=== PATIENT | male | born 1950 | race Caucasian/White ===

== ENCOUNTER 2018-01-03 16:33 | Emergency (ER) | payer OTHER ==
[~2018-01-03] VITALS: Ht 180.3 cm; Wt 86.4 kg
[~2018-01-03 16:33] MED LIST: NO HOME MEDICATIONS; PRILOSEC 10MG10 MG PO
[2018-01-03] MEDS ORDERED: MULTIPLE VITAMI1 CAP PO (17:11)
[2018-01-03 17:21] LABS: BASO % 0.7 % (0.0-2.0); EOS # 0.1 (0.0-0.7); EOS % 1.1 % (0-4.0); GRAN # 3.8 (1.4-6.5); GRAN % 67.8 % (42.2-75.2); HEMATOCRIT 38.7 % (42.0-52.0); HEMOGLOBIN 13.3 g/dl (13.5-18.0); LYMPH # 1.2 (1.2-3.4); LYMPH % 21.3 % (20.0-51.0); MEAN CELL VOLUME 92 fl (80.0-100.0); MEAN CORPUSCULAR HEMOGLOBIN 32 pg (27.0-31.0); MEAN CORPUSCULAR HGB CONC 34 g/dl (33.0-37.0); MONO # 0.5 (0.1-0.6); MONO % 8.9 % (1.7-9.3); PLATELET COUNT 194 K/mm3 (130-400); RED BLOOD COUNT 4.21 M/mm3 (4.20-5.60); REDCELL DISTRIBUTION WIDTH-CV 12.3 % (11.5-14.5)
[2018-01-03 17:22] LABS: PROTHROMBIN TIME 11.7 SECONDS (9.7-12.8)
[2018-01-03 17:25] LABS: PARTIAL THROMBOPLASTIN TIME 30.9 SECONDS (26.0-37.0)
[2018-01-03 17:30] LABS: ALANINE AMINOTRANSFERASE 36 U/L (21-72); ALBUMIN 4.2 gm/dL (3.5-5.0); ALKALINE PHOSPHATASE 71 U/L (50-136); ANION GAP 14 mmol/L (7-16); AST,SGOT 26 U/L (15-37); BILIRUBIN,TOTAL 0.6 mg/dL (0.0-1.0); BLOOD UREA NITROGEN 14 mg/dL (9-20); CALCIUM 8.9 mg/dL (8.4-10.2); CARBON DIOXIDE 25 mmol/L (22-30); CHLORIDE 106 mmol/L (98-107); CREATININE, serum 1.08 mg/dL (0.66-1.25); GLUCOSE 92 mg/dL (74-106); POTASSIUM 3.5 mmol/L (3.4-5.0); SODIUM 145 mmol/L (137-145)
[2018-01-03 17:37] LABS: ALCOHOL(ethanol),MEDICAL < 10 mg/dL
[2018-01-03 17:46] LABS: TROPONIN-I < 0.012 ng/mL (0.000-0.034)
[2018-01-03 18:13] VITALS: BP 145/93; PULSE 75; TEMP 97.5
== END 2018-01-03 18:13 | disposition home or self-care (01) ==
LOC: COL.ER 16:33
PROVIDERS: Family Medicine
DX: R07.89 Other chest pain (principal); R41.82 Altered mental status, unspecified

== ENCOUNTER 2019-07-21 10:46 | Day surgery (SDC) | payer MEDICARE, BC ==
[~2019-07-21] VITALS: Ht 180.3 cm; Wt 83.5 kg
[2019-07-21] VITALS (10 sets, daily range): BP systolic 132–167; BP diastolic 81–93; PULSE 77–124; TEMP 97.5–98.4
[~2019-07-21 10:46] MED LIST changes: +MULTIPLE VITAMI1 CAP PO
[2019-07-21] MEDS ORDERED: LEVAQUIN 5500 MG/TA1 PO (11:50)
[2019-07-21] MEDS ORDERED: PRINIVIL10 MG PO (11:51)
--- NOTE | 2019-07-21 12:11 | NUR ---
Patient escorted to restroom, voids, returns to room.
--- NOTE | 2019-07-21 15:45 | NUR ---
Patient arrived to floor via bed. He continues to have burning in his bladder and penis. He stated nothing he has been given is helping and does not want try anything else for pain at this time. Denies nausea. Mansi is here explaining the procedure for mitomycin installation. Patient is alert and oriented. He has a friend with him at bedside. Vital signs are stable. No other changes at this time. Call light within reach.
--- NOTE | 2019-07-21 17:06 | NUR ---
Pt has now been to each side and back x2. He is asking for medication to remove his discomfort from the catheter but he has already recieved that. His friend is playing the guitar to help soothe him and we will continue to try to support him with this dwell time until he reports he is ready to release.
--- NOTE | 2019-07-21 17:29 | NUR ---
Pt is now concerned that he will have to keep his catheter in for several days per what Dr Ashley reportedly told his friend. Pt is slow in processing what is said to him at times but does seems to understand what is said to him. He is now on his right side.
--- NOTE | 2019-07-21 18:29 | NUR ---
Pt was able to tolerate the dwell time for the two hours ordered. 300ml of bloody urine drained from bladder along with mitomycin. Catheter bag changed. Pt able to stand up at bedside and is acting more alert and aware. Pericare was done and scant bloody drainage was noted near end of penis. He is preparing to eat his evening meal. Report to Chen REEDER.
--- NOTE | 2019-07-21 18:35 | NUR ---
CBI used to flush bladder and then reduced to slow rate.
--- NOTE | 2019-07-21 20:00 | NUR ---
Patient in bed, is alert and oriented x4. IV site to right hand with IVF infusing without problem. Catheter cares provided. Has CBI infusing at moderate rate, urine dark red, no clots noted. Patient has read chemo precautions papers, questions answered as best possible.
--- NOTE | 2019-07-22 03:20 | NUR ---
Patient disoriented, has IV site pulled out and is sitting at edge of bed. Mendenhall catheter and CBI remain intact. Patient reports having a dream then thinking he needed to get up. DC'd IVF as patient is drinking well. Restarted SL to right forearm without problem. Hand irrigated catheter, no clots returned. Urine is pink tinged at this time with CBI running at slow rate. Chemo precautions being observed.
[2019-07-22 03:33] VITALS: BP 135/87; PULSE 85; TEMP 98.5
--- NOTE | 2019-07-22 04:30 | NUR ---
Patient impulsive, standing beside bed with catheter pulled tight. Redirected back to bed. Patient insistent of his catheter leaking, was hand irrigated with no clots returned, flushes easily. Urine is pink tinged at this time. Attempted to explain mustafa catheter function, patient believes he needs to forcefully make himself urinate. No leaking around catheter at this time.
--- NOTE | 2019-07-22 06:00 | NUR ---
REMAINS IMPULSIVE AND HARD TO REDIRECT BACK TO BED. STILL INSISTS HE NEEDS TO MAKE HIMSELF URINATE. BED ALARM ON.
--- NOTE | 2019-07-22 06:17 | NUR ---
LEVSIN PO GIVEN AT THIS TIME FOR POSSIBLE BLADDER SPASMS.
--- NOTE | 2019-07-22 07:20 | NUR ---
REPORT TO LEI REEDER.
[2019-07-22 08:25] VITALS: BP 127/74; PULSE 81; TEMP 98.2
--- NOTE | 2019-07-22 09:22 | NUR ---
Patient resting in bed. High fall risk followed. Patient's mind seems to be clearing, he is not nearly as impulsive as he was at the begining of the shift. He is aware his mind was not clear. He is anxious/nervous about having to go home with mustafa, he is anxiously awaiting to round. He did well with breakfast. Int. Will monitor.
[2019-07-22 12:00] VITALS: BP 135/73; PULSE 85; TEMP 98.5
--- NOTE | 2019-07-22 13:55 | NUR ---
rounded. Orders obtained. Patient discharging home with mustafa in place. Patient not interested in leg bag teaching. Mustafa care taught. Patient aware to follow up with urology on & to call with any questions or concnerns. his friend at bedside taking him home. Script for pyridium called to [facility], home med list reviewed. Patient wheeled out with all belongings.
== END 2019-07-22 14:02 | disposition home or self-care (01) ==
LOC: SDCO 10:46 → SURG 15:25 → SDCO 15:30 → SURG 07-22 14:02
DX: C67.5 Malignant neoplasm of bladder neck (principal); C67.2 Malignant neoplasm of lateral wall of bladder; I10 Essential (primary) hypertension; F32.9 Major depressive disorder, single episode, unspecified; M19.90 Unspecified osteoarthritis, unspecified site; F03.90 Unspecified dementia, unspecified severity, without behavioral disturbance, psychotic disturbance, mood disturbance, and anxiety; F41.9 Anxiety disorder, unspecified; E78.5 Hyperlipidemia, unspecified; Z87.891 Personal history of nicotine dependence; Z83.3 Family history of diabetes mellitus
CPT/HCPCS: OP; J0690; J2405; J2704; J3010; J3480; J7120; J9280; Q9967

== ENCOUNTER 2019-08-15 13:29 | Inpatient (IN) | payer MEDICARE, BC ==
[~2019-08-15] VITALS: Ht 180.3 cm; Wt 72.7 kg
[~2019-08-15 13:29] MED LIST changes: +LEVAQUIN 5500 MG/TA1 PO; +PRINIVIL10 MG PO
[2019-08-15 14:29] LABS: BASO % 0.8 % (0.0-2.0); EOS % 0.8 % (0-4.0); GRAN # 2.8 (1.4-6.5); GRAN % 78.1 % (42.2-75.2); HEMATOCRIT 39.6 % (42.0-52.0); HEMOGLOBIN 13.4 g/dl (13.5-18.0); LYMPH # 0.4 (1.2-3.4); LYMPH % 11.7 % (20.0-51.0); MEAN CELL VOLUME 95 fl (80.0-100.0); MEAN CORPUSCULAR HEMOGLOBIN 32 pg (27.0-31.0); MEAN CORPUSCULAR HGB CONC 34 g/dl (33.0-37.0); MEAN PLATELET VOLUME 9.3 fl (7.4-10.4); MONO # 0.3 (0.1-0.6); MONO % 7.5 % (1.7-9.3); PLATELET COUNT 135 K/mm3 (130-400); RED BLOOD COUNT 4.17 M/mm3 (4.20-5.60); REDCELL DISTRIBUTION WIDTH-CV 12.4 % (11.5-14.5)
[2019-08-15 14:36] LABS: PROTHROMBIN TIME 11.1 SECONDS (9.7-12.8)
[2019-08-15 14:58] LABS: ALANINE AMINOTRANSFERASE 12 U/L (21-72); ALBUMIN 4.2 gm/dL (3.5-5.0); ALKALINE PHOSPHATASE 69 U/L (50-136); ANION GAP 12 mmol/L (7-16); AST,SGOT 27 U/L (15-37); BILIRUBIN,TOTAL 0.6 mg/dL (0.0-1.0); BLOOD UREA NITROGEN 11 mg/dL (9-20); CALCIUM 8.6 mg/dL (8.4-10.2); CARBON DIOXIDE 22 mmol/L (22-30); CHLORIDE 103 mmol/L (98-107); GLUCOSE 126 mg/dL (74-106); POTASSIUM 4.5 mmol/L (3.4-5.0); SODIUM 137 mmol/L (137-145); TOTAL PROTEIN 7.3 gm/dL (6.4-8.2)
[2019-08-15 15:02] LABS: ACETAMINOPHEN < 10 ug/mL (10-30); ALCOHOL(ethanol),MEDICAL < 10 mg/dL; SALICYLATE < 1.0 mg/dL
[2019-08-15 15:10] LABS: TROPONIN-I < 0.012 ng/mL (0.000-0.035)
[2019-08-15 15:12] LABS: TRICYCLIC ANTIDEPRESS URINE NEGATIVE
[2019-08-15] MEDS ORDERED: FLOMAX 0.40.4 MG/CAP PO (16:01)
[2019-08-15 18:30] VITALS: BP 167/102; PULSE 86; TEMP 98.5
--- NOTE | 2019-08-15 18:47 | NUR ---
182: PT ARRIVED TO FLOOR FROM ER WITH AMS/SEIZURES. PT TRANSFERED TO BED. ICU MONITORS APPLIED. PT IS AWAKE BUT UNABLE TO ANSWER MOST QUESTIONS. PT GOES OFF ON TANGENTS. PT ABLE TO FOLLOW COMMANDS. LENS MOUNTER EQUAL, NO FACIAL DROOP, LUIS. CALLED SINTIA TRISTAN REGARDING ADMISSION. SHE STATES WILL BE INPUTTING ADMIT ORDERS. 1834: CALL PLACED TO AND WAS NOTIFIED THAT HE WAS ON HIS WAY TO THE HOSPITAL. 1847: BEDSIDE TO EVALUATE PT.
--- NOTE | 2019-08-15 19:35 | NUR ---
PT'S FRIEND VIRGEN SETHI CALLED PT'S CELL PHONE. BRIEFLY UPDATED ON PT. ASKED HIM TO CONTACT PT'S SON GONSALO. GONSALO PATRICK CALLED THIS RN AND WAS UPDATED ON PT'S STATUS AND PLAN. STATES PT HAS NO HISTORY OF SEIZURES. PT'S SON LIVES IN [place] AND HIS NUMBER IS [phone]. PT ALSO HAS A DAUGHTER STAN PATRICK BUT SON STATES THEY ARE ESTRANGED. DAUGHTER LIVES IN [place] AND HER NUMBER IS [phone]. SON STATES PT'S FRIEND VIRGEN SETHI WILL COME TOMORROW AND BRING MEDICATIONS FROM PTS HOUSE. SON UPDATED ON PLAN AND THAT WE WILL CALL WITH UPDATES OR NEED FOR CONSENT. ENDORSED ABOVE TO NIGHT RN.
[2019-08-15 20:00] VITALS: BP 145/96; PULSE 76; TEMP 100.4
--- NOTE | 2019-08-15 20:10 | NUR ---
While assessing the patient, the patient's son, Rishi, called to follow up on information on his father. Rishi stated he was in contact with a friend of the patient's who lived in town that had more information on Jasen's (the patient) medical history. Stated that his urologist is Dr. Ashley, takes a new blood pressure medication as of 2 weeks ago, and takes Finastride for his prostate. Reported that the patient uses [facility] and that Nas (family friend) would be by in the afternoon tomorrow with the medications from Jasen's home. Rishi stated that Jasen may have a med list in his wallet, asked this RN if it may be in there. With the son on the phone, I looked through the patient's wallet and found no medication list but found alarm codes written throughout the wallet and informed the son that there may be an alarm code to the house if he were to be going over there to retreive medications. I then passed the phone to the patient to talk to his son, the conversation on the patient end was moderately confused, repetitive, and went on tangents. Seeing that the conversation was stressing the patient, I got the phone back and talked to the son. Rishi stated that he could tell his father was confused and didn't want to stress him, asked to call him back with any new changes.
[2019-08-16] VITALS (8 sets, daily range): BP systolic 120–153; BP diastolic 73–96; PULSE 67–90; TEMP 97.8–99
[2019-08-16] MEDS ORDERED: FINASTERIDE (06:04)
[2019-08-16 06:17] LABS: BASO % 0.7 % (0.0-2.0); EOS # 0.1 (0.0-0.7); EOS % 1.5 % (0-4.0); GRAN # 3.2 (1.4-6.5); GRAN % 69.9 % (42.2-75.2); LYMPH # 0.8 (1.2-3.4); LYMPH % 18.1 % (20.0-51.0); MEAN CELL VOLUME 95 fl (80.0-100.0); MEAN CORPUSCULAR HEMOGLOBIN 32 pg (27.0-31.0); MEAN CORPUSCULAR HGB CONC 34 g/dl (33.0-37.0); MEAN PLATELET VOLUME 9.5 fl (7.4-10.4); MONO # 0.4 (0.1-0.6); MONO % 9.6 % (1.7-9.3); PLATELET COUNT 144 K/mm3 (130-400); RED BLOOD COUNT 3.76 M/mm3 (4.20-5.60); REDCELL DISTRIBUTION WIDTH-CV 12.5 % (11.5-14.5)
[2019-08-16 06:20] LABS: CALCIUM 8.4 mg/dL (8.4-10.2); CREATININE, serum 1.04 (0.66-1.25); POTASSIUM 3.8 mmol/L (3.4-5.0)
[2019-08-16 06:21] LABS: HEMATOCRIT 35.8 % (42.0-52.0)
--- NOTE | 2019-08-16 07:00 | NUR ---
Bedside report given to VARINDER Rios.
--- NOTE | 2019-08-16 07:10 | NUR ---
Bedside shift report received from VARINDER Weiss. Patient is awake, alert, but is confused and speech is repetative. Patient reoriented to place, sitation, and time. Patient recalls having a seizure yesterday, but is "fuzzy" on the details. Patient cannot recall his home medications and when he last took them. Full assessment completed. Vital signs are stable. Seizure precautions are in place. Bed in lowest position. Call light within reach.
--- NOTE | 2019-08-16 07:15 | NUR ---
PT's friend Nas called to check in on patient, stated he would come by today to see him. Nas informed this RN that the patient has had "a pretty bad drinking problem the past two years" and wanted us to be aware in case this contributed as to why he is here. Nas said he could go to the PT's house to get his meds but [place] and he wanted to avoid a long trip, was hoping we would be able to retrieve a med list via the PT's last visit with Dr. Ashley or through [facility]. Nas said that he is likely going to be the most reliable "resource and advocate" for the patient since the PT does not have a good relationship with his children. Blanca RN (oncoming nurse) notified of this information.
--- NOTE | 2019-08-16 10:45 | NUR ---
Patient continuously attempting to get out of bed at this time. Patient is easily reoriented and is pleasant at this time. Patient states he is looking for his glasses. Personal belongings assessed and no glasses were found at this time. Patient states he will call his friend Nas to see if he left them in his car.
[2019-08-16 12:33] LABS: COLLECTION METHOD CATHETER
[2019-08-16 12:47] LABS: MUCOUS Present /lpf; PH 5 (5-8); SQUAMOUS EPITHELIAL None Seen /hpf; URINE APPEARANCE Cloudy; URINE BACTERIA None Seen /hpf; URINE BILIRUBIN Negative (NEGATIVE); URINE BLOOD 3+ (NEGATIVE); URINE COLOR Yellow; URINE GLUCOSE Negative (NEGATIVE); URINE KETONE Trace (NEGATIVE); URINE LEUKOCYTE ESTERASE Trace (NEGATIVE); URINE NITRATE Negative (NEGATIVE); URINE PROTEIN(semi-quant) 1+ (NEGATIVE); URINE RBC >50 /hpf; URINE UROBILINOGEN Negative (NEGATIVE)
--- NOTE | 2019-08-16 13:29 | NUR ---
Arborist Climber attended clinical rounds with the team and then met with patient to discuss discharge plan. Patient [place] [facility] [place]. Patient sees Dr. Zuñiga for primary care and obtains medications from [facility] with no difficulties. Patient does not use any DME and reports independence with ADLS. During rounds, Hospitalist discussed alcohol use. Patient reports he drinks once or twice a week and has less than a six pack normally. Patient states he drinks beer and occasionally has mixed drinks. Patient reports he has two living children. Patient reports his son, Robert lives in [place] and his daughter Rupal lives in [place]. Patient was unsure of their contact information. When asked about Advance Directives, patient was unsure if they had ever been set up. SW met again with patient and patient's friend, Nas (ph#[phone]) at bedside. Patient and Nas discussed patient's current living situation as patient states he can't do as much yard work as he used to. Patient would like to move to a condo of some kind that includes outdoor maintenance. SW asked patient again if he had Advance Directives. Patient states he thinks he has worked with an permanent mold supervisor and states he will follow up on this. Patient not interested in setting up DPOA-HC at the hospital. Nas provided SW with contact information for patient's son, Robert (ph#[phone]). Nas states he lives in [place] and knows more about the patient than patient's children do. Patient plans to return home upon discharge.
--- NOTE | 2019-08-16 15:15 | NUR ---
Report called to VARINDER Live at this time.
--- NOTE | 2019-08-16 15:46 | NUR ---
Patient transferred to medical bed 355 via wheelchair by APPLICATION ASSISTANT with no complications. Once patient in room, patient ambulates with no issues or concerns. Seizure precautions in place on new bed. Call light placed within reach of the patient. Patient oriented to room and bathroom. Patient has no complaints or concerns at this time. Medical floor techs and Maria T RN notified of patient arrival at this time.
--- NOTE | 2019-08-16 15:57 | NUR ---
Raw Stock Dyeing Machine Tender met with patient's friend, Nas who expressed to SW that he has concerns about patient's safety returning home alone. Nas states patient has a drinking problem. Nas also advised that patient had a recent procedure that required he be sent home with a catheter and upon arriving home, patient removed catheter himself. Nas requested to speak with Hospitalist and SW passed along this request to Dr. Coleman. SW contacted patient's son, Robert (ph#[phone]) who advised he lives in [place] and is unable to come to [place] at this time but would help in any way he could. Robert states patient is independent and does what he wants to do although Robert advised he is somewhat estranged from patient. SW to continue to follow and made report to Adult Protective Services based on concerns presented to SW by patient's friend, Nas. Intake #[id number].
--- NOTE | 2019-08-16 16:28 | NUR ---
Pt admitted to medical unit rm 355 from ICU via WC, alert and oriented to self and city, unclear of current location and situation. Physical assessment unremarkable. Saline lock IV x 2 to left AC and right forearm, no s/s of complications. Pt asking if he can just leave, states, "I'm just not comfortable here." This nurse explains the importance of the pt staying until the doctor feels he is medically ready for discharge. Pt agrees to stay over night and possible leave in the morning after talking to the doctor. No further needs reported. Call light in reach.
--- NOTE | 2019-08-16 17:30 | NUR ---
Pt up in the room, getting dressed, has pulled out his IV from right forearm, stating "I don't need IV stuff anymore." This nurse explains the need for an IV site and that we need to leave the IV to the left AC in place. Pt verbalizes understanding. Pt still agrees to stay overnight and get some rest. Call light in reach.
[2019-08-16 20:01] LABS: HIV 1/2 Antibodies Non-Reactive; HIV-1p24 Antigen Non-Reactive
--- NOTE | 2019-08-16 22:45 | NUR ---
PT AMB INHALL WITH HIS BELONGINGS. LOOKING FOR THE DOOR. PT VERY CONFUSED. HE RELATES NEEDS FIND HIS PRESENTATION FOR HIS MEETING IN THE MORNING. HE REALTES HE JUST HAD IT. EXHIBITING PARNOID BEHAVIOR. PT ROAMING ALL OVER THE ROOM. AGAITATED. TRIED TO GIVE ATIVAN IV. LT AC IV INFILTRATED. TALKED PT INTO TAKING ATIVAN 2MG PO. GLASS TINTER HERE HELPING TO SIT WITH PATIENT.
--- NOTE | 2019-08-16 23:28 | NUR ---
SPORTS BROADCASTING INTERNSHIP STARTED IV #20G IN INNER F/A. PT RESTING IN BED. CALM AT THE MOMENT. SIDERAILS UP AT THIS TIME, BED ALARM SET. CALL LIGHT IN REACH.
--- NOTE | 2019-08-17 00:13 | NUR ---
REPEATED ATIVAN 2MG PO D/T PT STILL ANXIOUS AND AGITATED. TRYING TO GET OUT OF BED TO LEAVE TO GO DO HIS "PRESENTATION".
--- NOTE | 2019-08-17 01:00 | NUR ---
PT DC'D 3RD IV. PHARMACY ASSOCIATE RELATES KEEP OUT UNTIL NEEDED. PT GOT OUT OF BED. ALMOST FELL. ASSISTED TO BR. VOIDED, BACK TO BED. PT CONFUSED X3. PT KNOWS HIS NAME. BACK TO BED. BED ALAMSET. CALL LIGHT IN REACH. STAYED WITH PT UNTIL BACK TO SLEEP.
--- NOTE | 2019-08-17 02:00 | NUR ---
PT SLEEPING SOUNDLY. NO RESP DISTRESS. CALL LIGHT IN REACH. BED ALARM SET.
[2019-08-17 05:50] VITALS: BP 148/96; PULSE 81; TEMP 97.6
--- NOTE | 2019-08-17 06:18 | NUR ---
PT AWAKE. GOT UP OUT OF BED IMPULSIVELY. BED ALARM SOUNDING VERY UNSTEADY. CONFUSED. DIFFICULT TO REDIRECT. THOUGHT BR WAS IN SILVA. ASSISTED TO BR. VOIDED CLEAR ALDO URINE SUFF QTY. PULLED OF ID BAND AND COBAN FROM ARM. STILL DIFFICULT TO REDIRECT. THINKS IT TIME TO GO HOME. ASSISTED TO BED. SEE MAR FOR ATIVAN GIVEN. BED ALARM SET. CALL LIGHT IN REACH.
[2019-08-17 08:59] VITALS: BP 140/87; PULSE 73; TEMP 97.8
--- NOTE | 2019-08-17 09:32 | NUR ---
Pt awake and sitting up in the recliner, just returned to room from walking with PT, eating breakfast, conversation disjointed, shift assessment complete, left Pt call light in reach.
--- NOTE | 2019-08-17 10:18 | NUR ---
Initial visit; Patient thanked Production Line Mechanic for looking in on him. Patient appeared a little vague. Production Line Mechanic wished him well and offered God's blessings.
[2019-08-17 12:31] VITALS: BP 129/72; PULSE 81; TEMP 97.3
[2019-08-17 16:00] VITALS: BP 118/75; PULSE 85; TEMP 98.1
--- NOTE | 2019-08-17 16:21 | NUR ---
MARITO met with the patient to discuss placement recommendations and provided Medicare.gov's list of nursing homes. The patient stated that he is going home tomorrow so he cannot go to rehab. He added that he needs to get his car from [employer]. He stated that he could walk out of the hospital anytime he wanted. After meeting with the patient MARITO contacted, Nas the patient's friend. Nas reports that the patient's son, Robert was going to work on picking up the car from the [employer]. MARITO informed the patient and he will contact Nas. consulting services manager will contiue to follow.
--- NOTE | 2019-08-17 19:36 | NUR ---
Pt resting in the room, Pt sometimes not completely oriented, no C/O pain during the day, VS have remained stable.
--- NOTE | 2019-08-17 20:00 | NUR ---
Received report from VARINDER Mart. Assessment complete. Denies any pain or discomfort at this time. Seizure precautions in place with bed alarm on. Alert and oriented to self. Unable to state current date and situation. Pt seems confused with conversation. Meds administered as ordered. Needs attended too. Call light within reach. No tremors noted to upper extremities. Call light within reach.
[2019-08-17 20:34] VITALS: BP 125/68; PULSE 79; TEMP 98.3
[2019-08-17 23:51] VITALS: BP 144/84; PULSE 84; TEMP 98.3
[2019-08-18 04:05] VITALS: BP 129/77; PULSE 73; TEMP 98.2
--- NOTE | 2019-08-18 05:08 | NUR ---
Pt intermittently gets out of bed confused about where he is but pt is easily redirected back to room and back into bed. pt compliant. Needs met. Call light within reach. Instructed pt to use call light if he wants to get out of bed.
--- NOTE | 2019-08-18 07:13 | NUR ---
Report given to VARINDER Mart.
[2019-08-18 08:34] VITALS: BP 130/85; PULSE 72; TEMP 98.5
[2019-08-18 08:54] LABS: BASO # 0.1 (0.0-0.2); BASO % 1.4 % (0.0-2.0); EOS # 0.1 (0.0-0.7); EOS % 2.7 % (0-4.0); GRAN # 2.1 (1.4-6.5); GRAN % 56.4 % (42.2-75.2); HEMOGLOBIN 12.1 g/dl (13.5-18.0); LYMPH # 0.9 (1.2-3.4); LYMPH % 25.6 % (20.0-51.0); MEAN CELL VOLUME 95 fl (80.0-100.0); MEAN CORPUSCULAR HEMOGLOBIN 32 pg (27.0-31.0); MEAN CORPUSCULAR HGB CONC 34 g/dl (33.0-37.0); MONO # 0.5 (0.1-0.6); MONO % 13.6 % (1.7-9.3); PLATELET COUNT 108 K/mm3 (130-400); RED BLOOD COUNT 3.74 M/mm3 (4.20-5.60); REDCELL DISTRIBUTION WIDTH-CV 12.6 % (11.5-14.5)
[2019-08-18 08:58] LABS: HEMATOCRIT 35.5 % (42.0-52.0)
[2019-08-18 09:12] LABS: CALCIUM 8.7 mg/dL (8.4-10.2); CREATININE, serum 1.14 (0.66-1.25); POTASSIUM 3.8 mmol/L (3.4-5.0)
--- NOTE | 2019-08-18 09:16 | NUR ---
Pt awake and alert this morning, talkative, no C/O pain at this time, shift assessments complete, left Pt call light in reach, bed in lowest position, alarm on.
[2019-08-18 12:02] VITALS: BP 133/75; PULSE 81; TEMP 98.1
[2019-08-18 18:07] VITALS: BP 128/76; PULSE 79; TEMP 98.1
--- NOTE | 2019-08-18 18:39 | NUR ---
Pt resless during the day, up and down several times OOB, steady on his feet while ambulating, Pt not scoring on the detox scale, VS have remained stable.
--- NOTE | 2019-08-18 20:00 | NUR ---
Received report from VARINDER Mart. Assessment complete. Alert and oriented to self, time, and place. Pt unsure of his situation. Denies any pain or any discomfort at this time. Needs met. Meds administered as ordered. seizure and fall precautions in place. Informed pt to use call lightif he needs to get out of bed. Call light within reach.
[2019-08-19] VITALS: BP 134/74; PULSE 71; TEMP 97.4
[2019-08-19 04:00] VITALS: BP 116/65; PULSE 75; TEMP 98.1
--- NOTE | 2019-08-19 04:53 | NUR ---
Pt made no complaints during this shift. Pt woke up and got out of bed a few times throughout the night confused but easily redirected to place and situation. Pt compliant. Seizure precaution in place. Bed alarm set. Call light within reach.
--- NOTE | 2019-08-19 07:14 | NUR ---
Report given to VARINDER Schofield.
[2019-08-19 08:30] VITALS: BP 116/68; PULSE 72; TEMP 98.7
--- NOTE | 2019-08-19 08:45 | NUR ---
Assessment complete. Pt resting in bed, awake and alert. Partially oriented. Pt is very insistent that he wants to go home today and has gotten out of bed several times this morning. Pt is easily redirected. Pt denies pain. Denies needs. Bed alarm on. Call light within reach.
[2019-08-19 10:36] VITALS: BP 113/63; PULSE 77; TEMP 97.7
--- NOTE | 2019-08-19 11:53 | NUR ---
Pt's brothers in room to visit
[2019-08-19 13:35] VITALS: BP 115/58; PULSE 80; TEMP 98.5
[2019-08-19] MEDS ORDERED: FOLIC ACID 11 MG/TA1 PO (13:39)
[2019-08-19] MEDS ORDERED: KEPPRA 500MG500 MG PO (13:39)
[2019-08-19] MEDS ORDERED: THIAMINE 1100 MG/TAB PO (13:40)
--- NOTE | 2019-08-19 14:50 | NUR ---
Discharge instructions reviewed with pt and brothers. Pt is to f/u with PCP and neurology. Pt instructed to call offices on Wednesday to schedule appoinments. Reviewed home seizure precautions with pt - stressed that per [place] law, he may not drive until he has been seizure free for six months. Questions invited and answered. Pt verbalizes understanding of discharge instructions. Pt escorted to private vehicle by KAYAKING INSTRUCTOR.
[2019-08-25 14:19] LABS: RPR (VDRL) XXX
== END 2019-08-19 14:50 | disposition home or self-care (01) | DRG 101 ==
LOC: COL.ER 13:29 → ICU 17:15 → MEDICAL 08-16 15:49
PROVIDERS: Emergency Medicine; Hospitalist; Nurse Practitioner Family; Physician Assistant; Psychiatry & Neurology Neurology
DX: R56.9 Unspecified convulsions (principal); N39.0 Urinary tract infection, site not specified; I67.7 Cerebral arteritis, not elsewhere classified; G31.89 Other specified degenerative diseases of nervous system; I10 Essential (primary) hypertension; Z90.6 Acquired absence of other parts of urinary tract; Z85.51 Personal history of malignant neoplasm of bladder
CPT/HCPCS: 99222-AI; 99232-AI; 99233-AI; 99239; A4216; J0696; J1644; J1953; J2060; J2250; J2704; J7030; Q9967

== ENCOUNTER 2019-09-20 10:38 | Day surgery (SDC) | payer MEDICARE, BC ==
[~2019-09-20] VITALS: Ht 180.3 cm; Wt 82.3 kg
[2019-09-20] VITALS (10 sets, daily range): BP systolic 108–158; BP diastolic 64–94; PULSE 48–78; TEMP 97.5–98.3
[~2019-09-20 10:38] MED LIST changes: +FINASTERIDE; +FLOMAX 0.40.4 MG/CAP PO; +FOLIC ACID 11 MG/TA1 PO; +KEPPRA 500MG500 MG PO; +THIAMINE 1100 MG/TAB PO
--- NOTE | 2019-09-20 18:30 | NUR ---
Patient got back from surgery at 1430. He slept for the first hour. He has been confused since he woke up. He keep forgetting that he had surgery and that he has a catheter. Minimal complaints of pain. He stated he has to void, explained he has a catheter that is working and draining his bladder. CBI has a moderate flow. No clots noted in the urine. No other changes at this time. Call light within reach. Bed alarm on.
--- NOTE | 2019-09-20 20:50 | NUR ---
Pt. laying in bed at this time. Pt. is alert and oriented but forgettful. INT to rt. hand patent. Three-way mustafa to with irrigation to dependent drainage. Urine is pink at this time. CBI is running mod/slow. Pt. denies pain or other needs, call light within reach.
[2019-09-21] VITALS: BP 131/73; PULSE 72; TEMP 98.1
[2019-09-21 04:00] VITALS: BP 157/94; PULSE 88; TEMP 98.3
[2019-09-21 07:13] VITALS: BP 135/85; PULSE 76; TEMP 98.9
--- NOTE | 2019-09-21 08:00 | NUR ---
IN EARLY THIS AM. PATIENT P&P PER ORDERS. PATIENT GIVEN POST VOID EDUCATION AND 6 CUP ROUTINE. PATIENT URINATED ON FOURNIER DC. UNABLE TO CATH MOST OF IT IN URINAL. PATIENT ENCOURAGED TO FORCE FLUIDS. IV TO INT. PATIENT IS ALSO SLIGHTLY CONFUSED AT TIMES. PATIENT REPORTS HE WAS SLEEPING HARD WHEN WOKE HIM UP FROM A VIVID DREAM. PATIENT ORIENTED TO PERSON, SITUATION & PLACE CURRENTLY. VSS. REPORTS MILD BURNING AFTER FOURNIER DC'D. PATIENT UNDERSTANDS THIS TO BE NORMAL. HEAD TO TOE WNL. PATIENT HOPING TO DISCHARGE HOME LATER TODAY.
--- NOTE | 2019-09-21 11:00 | NUR ---
PATIENT HAS VOIDED SMALL, FREQUENT AMOUNTS TOTALING 250CC THROUGHOUT THE AM. URINE IS PEACH TO CLEAR. NO CLOTS NOTED. PATIENT LOOKING TO DISCHARGE MID AFTERNOON.
--- NOTE | 2019-09-21 11:09 | NUR ---
Merchandise Processor met with patient to discuss discharge planning. Patient [place] [facility] and sees Dr. Zuñiga for primary care. Patient obtains needed medications from [facility]. Patient does not use any DME and reports independence with ADLS. Patient reports he is working on setting up Advance Directives. Patient has transportation home today and states his brothers, Gerhard (ph#[phone]) and Ulices are picking him up today. Patient states he can't drive after his procedure today but normally drives otherwise. Patient plans to return home upon discharge. MARITO contacted Santa, Merchandise Processor at [facility] who works with Dr. Zuñiga. Santa advised she made a report to APS recently because patient is not supposed to drive until he is 6 months seizure free. MARITO advised patient reports he continues to drive. Santa reports APS Merchandise Processor responded to the home and reported no concerns for condition of the home. MARITO made a report to Adult Protective Services about concern that patient continues to drive although it is not safe. Intake #[id number].
[2019-09-21 11:13] VITALS: BP 131/80; PULSE 86; TEMP 97.7
--- NOTE | 2019-09-21 12:00 | NUR ---
PATIENT DISCHARGING HOME WITH BROTHERS. GAVE DISCHARGE INSTRUCTIONS AND FOLLOW UP APT. DC'D IV. PATIENT DISCHARGED VIA POV
== END 2019-09-21 12:00 | disposition home or self-care (01) ==
LOC: SDCO 10:38 → SURG 14:33 → SDCO 09-21 12:00
DX: C67.5 Malignant neoplasm of bladder neck (principal); N30.80 Other cystitis without hematuria; I10 Essential (primary) hypertension; F41.9 Anxiety disorder, unspecified; M19.90 Unspecified osteoarthritis, unspecified site; F03.90 Unspecified dementia, unspecified severity, without behavioral disturbance, psychotic disturbance, mood disturbance, and anxiety; E78.5 Hyperlipidemia, unspecified; Z88.8 Allergy status to other drugs, medicaments and biological substances; Z87.891 Personal history of nicotine dependence; Z83.3 Family history of diabetes mellitus
CPT/HCPCS: OP; J0690; J1170; J2405; J2704; J3010; J7120

== ENCOUNTER → 2021-01-22 | Outpatient (CLI) | payer MEDICARE, BC ==
[~2021-01-22] MED LIST changes: +ASPI325T6 PO; +MULTIPLE VITAMI1 TA1 PO; +TYLENOL 325MG325 MG PO
== END ==
LOC: COL.RAD 12:54
DX: G40.909 Epilepsy, unspecified, not intractable, without status epilepticus (principal); I66.9 Occlusion and stenosis of unspecified cerebral artery; M48.02 Spinal stenosis, cervical region; G31.9 Degenerative disease of nervous system, unspecified; R90.82 White matter disease, unspecified; M50.20 Other cervical disc displacement, unspecified cervical region; R41.3 Other amnesia; I77.6 Arteritis, unspecified
CPT/HCPCS: Q9967

== ENCOUNTER → 2021-03-07 | Outpatient (CLI) | payer MEDICARE, BC | LOC: SDCO 02-28 10:00 → COL.LAB 08:00 → SDCO 03-12 10:00 → EDSTATUS 04-04 10:00 | DX: Z79.899 Other long term (current) drug therapy (principal); Z20.822 Contact with and (suspected) exposure to COVID-19 ==

== ENCOUNTER 2021-06-11 10:11 | Inpatient (IN) | payer MEDICARE, BC ==
[~2021-06-11] VITALS: Ht 180.3 cm; Wt 78.9 kg
[2021-06-11] VITALS (10 sets, daily range): BP systolic 133–151; BP diastolic 70–92; PULSE 75–103; TEMP 97.8–98.3
[~2021-06-11 10:11] MED LIST changes: -ASPI325T6 PO; -MULTIPLE VITAMI1 TA1 PO; -TYLENOL 325MG325 MG PO
--- NOTE | 2021-06-11 16:39 | NUR ---
Patient receieved post op from Vannessa. Patient CBI slowed to moderate rate, pink/reddish output. Dinner ordered. Denies nausea. Patient seems restless, plan of care reviewed. Vss on room air. Ivf per orders. Will continue to monitor closely. High fall risk protocol followed
--- NOTE | 2021-06-11 19:17 | NUR ---
Patient resting in bed. Tolerated dinner. Patient educated multiple times on mustafa cares. He continues to figeting with his mustafa. Instructed him to let mustafa be and that it will drain on its own. He reports discomfort. B&O suppository given. CBI continues to a moderate rate. [place] tinged output. Vss. Asked patient to try to relax. Bed alarm on. Bedside report to night nurse Nydia.
--- NOTE | 2021-06-11 19:30 | NUR ---
Bedside report received, [facility] care for international trade manager. Assessment complete. A&Ox4-at first was slightly confused stating he was not allowed to eat and drink because he was having a procedure. After at length discussion accepted that the procedure was complete. CBI running at a moderate rate with light pink return. Received a B&O suppository during shift change for bladder spasms with good results. SCDs bilat. Plan of care discussed for this shift to include HS meds/CBI/calling for questions/concerns. Verbalizes understanding. call light in reach/bed alarm on. Will monitor.
--- NOTE | 2021-06-11 23:58 | NUR ---
Patient continues to mess with mustafa cath/CBI. Has been confused thus far-trying to climb out of bed/removing stat lock from cath/pulling on cath. Reoriented several times and instructed to not pull on cath as its causing more irritation. Assisted back to bed. Will continue to monitor.
[2021-06-12] VITALS (7 sets, daily range): BP systolic 111–157; BP diastolic 69–97; PULSE 69–121; TEMP 97.1–98.4
--- NOTE | 2021-06-12 03:19 | NUR ---
Has continued to be very confused and impulsive. Has jumped out of bed several times pulling mustafa. CBI continues to run at a moderate rate-was able to be slowed down until the cath has been pulled on either by patient who has continuously fidgeted with it or from getting out of bed even with bed alarm on. Has not slept at all this shift. Denies pain. Call light in reach bed alarm on. Will monitor.
--- NOTE | 2021-06-12 06:30 | NUR ---
Dr Ashley at bedside to see patient.
--- NOTE | 2021-06-12 06:45 | NUR ---
Mendenhall cath primed and pulled at this time. Instructed to call when has the urge to void. Verbalizes understanding but patient still confused so bed alarm is on. Will monitor.
--- NOTE | 2021-06-12 06:57 | NUR ---
Void x1 post prime and pull. Urine dark red, no clots noted.
--- NOTE | 2021-06-12 07:21 | NUR ---
JOSE Sy notified of consult.
[2021-06-12 08:59] LABS: BASO % 0.3 % (0.0-2.0); GRAN # 10.6 K/mm3 (1.4-6.5); GRAN % 85.5 % (42.2-75.2); HEMATOCRIT 45.6 % (42.0-52.0); LYMPH # 0.8 K/mm3 (1.2-3.4); LYMPH % 6.6 % (20.0-51.0); MEAN CELL VOLUME 95 fl (80.0-100.0); MEAN CORPUSCULAR HEMOGLOBIN 31 pg (27.0-31.0); MEAN CORPUSCULAR HGB CONC 33 g/dl (33.0-37.0); MEAN PLATELET VOLUME 9.3 fl (7.4-10.4); MONO # 0.9 K/mm3 (0.1-0.6); PLATELET COUNT 235 K/mm3 (130-400); PROTHROMBIN TIME 11.6 SECONDS (9.7-12.8); RED BLOOD COUNT 4.82 M/mm3 (4.20-5.60); REDCELL DISTRIBUTION WIDTH-CV 12.4 % (11.5-14.5)
[2021-06-12 09:05] LABS: ALBUMIN 3.9 gm/dL (3.4-4.8); CALCIUM 10.4 mg/dL (8.4-10.2); CREATININE, serum 1.41 mg/dL (0.72-1.25); POTASSIUM 4.6 mmol/L (3.5-4.5); TOTAL PROTEIN 8.4 gm/dL (6.2-8.1)
--- NOTE | 2021-06-12 09:22 | NUR ---
Patient alert, confused. Rambles about several things at once, unable to follow conversation. At times, difficult to redirect. Attempted to give patient his Depakote, patient stated he "took the ones I have in my jeans". Patient noted to have four Keppra tabs in his jeans pocket, these were not in a container, just loose in his pocket. Patient unsure how many he took. Also states "I forget if I take them when I'm at home, so I just take another". JOSE Sultana notified of above. Urinating adequate amounts of bloody urine. No c/o at this time.
--- NOTE | 2021-06-12 10:27 | NUR ---
Patient becoming progressively violent and aggressive. Updated JOSE Sultana of status, she requested we update Dr Kumar. Attempt x1 to call Dr Kumar, no answer.
--- NOTE | 2021-06-12 11:00 | NUR ---
Patient more aggressive, hitting at staff, attempting to break call light in half and vigorously shaking computer to remove it from the wall. Patient also verbally aggressive, calling staff "motherfuckers" and trying to bite staffs hands. Nas REEDER, Destiny REEDER, Joyce WHITE, Barron REEDER and Kayy GARCIA all at bedside attempting to re-orient patient. At approx 1110 patient finally lies in bed and sleeps.
--- NOTE | 2021-06-12 12:49 | NUR ---
Patient OOB without assist, bed alarm going off. Patient hits at staff when they attempt to assist with ambulation. Removes gown and attempts to remove pants. Patient assisted to bathroom, attempts to void in trash can, becomes aggressive with redirection. Dr Kumar into room, Ritika ordered. Assisted back to bed, sleeping in bed at this time.
--- NOTE | 2021-06-12 14:57 | NUR ---
Patient combative, hitting and kicking at staff and using profanity. Continues CIWA protocol.
--- NOTE | 2021-06-12 15:23 | NUR ---
The hospitalist team was consulted after he developed confusion after his procedure. The patient has a history of alcohol use and began detoxing this morning. He became aggressive and combative with staff and was given Haldol. The patient's PCP's office, Pee Murguia, faxed over the patient's DPOA-HC. The patient's DPOA-HC is his son, Rishi Reyes (ph#[phone]). Rishi live in [place]. The alternate is the patient's daughter, Rupal Reyes (ph#[phone]). She lives in [place]. MARITO placed the DPOA-HC in the patient's chart and notified the patient's RN. MARITO contacted the patient's son, Rishi, to complete intake. Rishi reports that him and the patient are estranged and that they do not have a great relationship. He was unaware that that the patient had even designated him as DPOA-HC, until last week, when Pee Murguia informed him of this. He states that his sister, Rupal, is even more estranged from the patient than him and that all of them have a fractured and estranged relationship. He confirms that the patient lives in [place]. He is unaware if the patient is independent at home or has any DME. The patient's PCP is Dr. Zuñiga. MARITO discussed the possible need placement upon discharge. The patient was observation status at the time of this conversation. MARITO informed Rishi how going to a fpc would be private pay. Rishi reports that he is not sure what the patient's finances are like. He just knows that the patient receives money from [employer], and that the patient does have a mortage. Rishi reports that he will do the best that he can to help as needed. MARITO updated the PA on the above. A psych consult is to be ordered. MARITO made an APS report. Intake ID#[id number].
[2021-06-12 17:55] LABS: COLLECTION METHOD CLEAN CATCH
[2021-06-12 18:37] LABS: MUCOUS Present /lpf; PH 6 (5-8); SQUAMOUS EPITHELIAL None Seen /hpf; URINE APPEARANCE Cloudy; URINE BACTERIA None Seen /hpf; URINE BILIRUBIN Negative (NEGATIVE); URINE BLOOD 3+ (NEGATIVE); URINE COLOR Red; URINE GLUCOSE 1+ (NEGATIVE); URINE KETONE Negative (NEGATIVE); URINE LEUKOCYTE ESTERASE Trace (NEGATIVE); URINE NITRATE Negative (NEGATIVE); URINE PROTEIN(semi-quant) 2+ (NEGATIVE); URINE RBC >50 /hpf; URINE UROBILINOGEN Negative (NEGATIVE)
[2021-06-12 18:41] LABS: TRICYCLIC ANTIDEPRESS URINE NEGATIVE
--- NOTE | 2021-06-12 21:13 | NUR ---
PATIENT IN ROOM ASLEEP, WITH SMALL APNEA STATE AND SNORING HEAD ELEVATED 25 DEGREES/ LESS SNORING/ AWAKENS CONFUSED STATES ABOUT BEING AT HOME/ VITALS ELEVATED CWA SCORE ELEVATED MEDS ADMINISTERED AND BACK TO SLEEP
[2021-06-13 02:41] VITALS: BP 137/89; PULSE 100; TEMP 98.5
--- NOTE | 2021-06-13 03:05 | NUR ---
MANY ATTEMPT MADE TO HAVE PATIENT RECIEVE EVENING ORAL MEDS, CURRENTLY WELL AT 2100 LAST NIGHT PATIENT IS HAVING DIFFICULT TIME UNDERSTANDING WHAT NEEDS TO BE DONE,
[2021-06-13 05:32] VITALS: BP 133/83; PULSE 83; TEMP 98
[2021-06-13 06:44] LABS: BASO % 0.6 % (0.0-2.0); EOS % 0.8 % (0-4.0); GRAN # 3.5 K/mm3 (1.4-6.5); GRAN % 71.1 % (42.2-75.2); LYMPH # 0.9 K/mm3 (1.2-3.4); LYMPH % 17.1 % (20.0-51.0); MEAN CELL VOLUME 95 fl (80.0-100.0); MEAN CORPUSCULAR HGB CONC 33 g/dl (33.0-37.0); MEAN PLATELET VOLUME 9.4 fl (7.4-10.4); MONO # 0.5 K/mm3 (0.1-0.6); RED BLOOD COUNT 3.75 M/mm3 (4.20-5.60); REDCELL DISTRIBUTION WIDTH-CV 12.7 % (11.5-14.5)
[2021-06-13 06:59] LABS: CALCIUM 9.2 mg/dL (8.4-10.2); CREATININE, serum 1.18 mg/dL (0.72-1.25); POTASSIUM 4.4 mmol/L (3.5-4.5)
[2021-06-13 07:59] LABS: HEMATOCRIT 35.6 % (42.0-52.0); HEMOGLOBIN 11.8 g/dl (13.5-18.0); MEAN CORPUSCULAR HEMOGLOBIN 31 pg (27.0-31.0); PLATELET COUNT 127 K/mm3 (130-400)
[2021-06-13 08:00] VITALS: BP 103/87; PULSE 84; TEMP 97.5
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
--- NOTE | 2021-06-13 10:10 | NUR ---
PATIENT'S BROTHER NOW AT BEDSIDE. PATIENT STILL CONFUSED REGUARDING HIS SITUATION. NURSING ATTEMPTED TO RE-ORIENT. BED ALARM ON.
--- NOTE | 2021-06-13 11:05 | NUR ---
MRI CALLED AND WILL BE UP SHORTLY. PATIENT'S BROTHER LEAVING. GAVE PRN ATIVAN IV FOR AGGITATION AND MRI SCAN.
--- NOTE | 2021-06-13 11:29 | NUR ---
PATIENT GOING DOWN FOR MRI VIA WC WITH RADIOLOGY
[2021-06-13 12:00] VITALS: BP 145/119; PULSE 102; TEMP 97.8
--- NOTE | 2021-06-13 13:32 | NUR ---
PATIENT CLIMBING OVER BED RAILS. PATIENT ATTEMPTED TO GET OUT OF BED THREE TIMES IN APPROX 15 MINUTES. PATIENT AGGITATED. GAVE PRN IV ATIVAN
--- NOTE | 2021-06-13 15:50 | NUR ---
PATIENT STILL ATTEMPTING TO GET UP OUT OF BED, SETTING OFF THE BED ALARM, APPROX EVER 15 MINUTES. PATIENT REQUIRES A LOT OF REDIRECTION AND 1:1 TO PREVENT FALLS. PATIENT ALSO CONTINUES TO HAVE WORD SALAD AND IS ONLY ORIENTED TO PERSON. SEE DETOX SCORE. GAVE PRN IV ATIVAN
[2021-06-13 16:00] VITALS: BP 150/96; PULSE 109; TEMP 97.4
--- NOTE | 2021-06-13 16:29 | NUR ---
The patient continues to be agitated, restless, and confused. SW to continue to follow.
[2021-06-13 19:53] VITALS: BP 122/71; PULSE 89; TEMP 98.1
--- NOTE | 2021-06-13 20:00 | NUR ---
PATIENT IS LAYING IN BED. PATIENT IS ONLY ORIENTED TO SELF AND IS DROWSY. PATIENT SPEECH IS INAPPROPRIATE. PATIENT IS ON DETOX PROTOCOL AND NEURO CHECKS.PATIENT IS ON GENERAL DIET. PATIENT HAS IV TO LEFT FOREARM INT. PATIENT HAS BED ALARMS ON AND IS CLOSE TO NURSES STATION. HE KEEPS TRYING TO GET OUT OF BED BUT WILL LAY BACK DOWN WHEN REDIRECTED. PATIENT IS AWAITING [facility] PSYCH PLACEMENT. PATIENT GIVEN ATIVAN PER ORDERS AND LEVACIN FOR BLADDER SPASMS PER ORDERS. NO FURTHER NEEDS AT THIS TIME. CALL LIGHT WITHIN REACH. HEAD TO TOE ASSESSMENT COMPLETE.
[2021-06-14] VITALS (317 sets, daily range): BP systolic 80–182; BP diastolic 57–103; PULSE 74–121; TEMP 97.6–98.7; O2SAT 87–100
--- NOTE | 2021-06-14 06:12 | NUR ---
PATIENT ONLY GIVEN ATIVAN PER ORDERS ONCE LAST NIGHT. HE SLEPT MOST OF NIGHT BUT GOT OUT OF BED NEEDING TO PEE THROUGHOUT THE NIGHT. PATIENT CLOSE TO NURSES STATION. CALL LIGHT WITHIN IN REACH.UNSTEADY GAIT. WILL REPORT TO DAYSHIFT
--- NOTE | 2021-06-14 08:00 | NUR ---
PATIENT IS ORIENTED TO PERSON OTHERWISE CONFUSED AND ON DETOX PROTOCOL. VSS. PATIENT IS VERY IMPULSIVE AND ATTEMPTS TO GET UP MULTIPLE TIMES IN A SHORT PERIOD. HIGH FALL RISK. BED ALARM ON. RE-ORIENTED FREQUENTLY. PATIENT THINKS HE NEEDS TO "GO TO SCHOOL". NO COMPLAINTS. PATIENT WAS ABLE TO TAKE PILLS ONE AT A TIME WITH WATER. BREAKFAST TRAY ORDERED. HEAD TO TOE ASSESSMENT COMPLETE, SEE CHARTING.
[2021-06-14 08:23] LABS: EOS # 0.1 K/mm3 (0.0-0.7); EOS % 2.5 % (0-4.0); GRAN # 2.8 K/mm3 (1.4-6.5); GRAN % 70.3 % (42.2-75.2); HEMOGLOBIN 11.6 g/dl (13.5-18.0); LYMPH # 0.6 K/mm3 (1.2-3.4); LYMPH % 14.2 % (20.0-51.0); MEAN CELL VOLUME 95 fl (80.0-100.0); MEAN CORPUSCULAR HEMOGLOBIN 32 pg (27.0-31.0); MEAN CORPUSCULAR HGB CONC 34 g/dl (33.0-37.0); MEAN PLATELET VOLUME 8.8 fl (7.4-10.4); MONO # 0.5 K/mm3 (0.1-0.6); MONO % 11.7 % (1.7-9.3); PLATELET COUNT 133 K/mm3 (130-400); RED BLOOD COUNT 3.62 M/mm3 (4.20-5.60); REDCELL DISTRIBUTION WIDTH-CV 12.2 % (11.5-14.5)
[2021-06-14 08:25] LABS: HEMATOCRIT 34.2 % (42.0-52.0)
[2021-06-14 08:56] LABS: CALCIUM 9.3 mg/dL (8.4-10.2); CREATININE, serum 0.95 mg/dL (0.72-1.25); POTASSIUM 3.9 mmol/L (3.5-4.5)
--- NOTE | 2021-06-14 12:15 | NUR ---
PATIENT STILL INCREASINGLY CONFUSED AT TIMES WITH MULTIPLE ATTEMPTS TO GET OUT OF BED. PATIENT SET OFF THE BED ALARM FREQUENTLY AND IS HIGH RISK TO FALL. PATIENT MAY REQUIRED A SITTER FOR SAFETY. PRN ATIVAN GIVEN PER PROTOCOL
--- NOTE | 2021-06-14 15:15 | NUR ---
PATIENT STILL VERY CONFUSED AND MEDS SO FAR ARE NOT HELPING. PATIENT NEARLY FELL SEVERAL TIMES AND WONT FOLLOW DIRECTIONS. PATIENT CONTINUES TO GET OUT OF BED AND CLIMBS OVER THE RAILS. CALLED HOSPITALIST. GAVE NOW DOSE OF HALDOL
--- NOTE | 2021-06-14 16:00 | NUR ---
PATIENT SET OFF BED ALARM AND WAS STANDING AT BEDSIDE WHEN NURSING RAN IN TO GET HIM BACK INTO BED. PATIENT GAIT IS VERY UNSTEADY. PATIENT WONT FOLLOW DIRECTION. GAVE PRN ATIVAN IV.
--- NOTE | 2021-06-14 16:09 | NUR ---
FREDERICK ON UNIT AND MAKING ROUNDS.
--- NOTE | 2021-06-14 16:36 | NUR ---
PATIENT CONTINUES TO TRY AND GET UP BUT IS HAVING MORE DIFFICULTY AFTER SECOND DOSE OF HALDOL. PATIENT IS STILL RESTLESS AND WONT SLEEP. HR AT 110. ALL OTHER VSS. MAKES HAND MOVEMENTS IN THE AIR LIKE HE IS TRYING TO GRAB SOMETHING. PATIENT REQUIRES FREQUENT REORIENTATING AND NEARLY CONSTANT NURSING STAFF ATTENTION.
--- NOTE | 2021-06-14 17:15 | NUR ---
PATIENT GOING DOWN TO ICU WITH NURSE SPECIAL (WHO IS WORKING UP ON SURGICAL). CALLED REPORT TO ICU NURSE. ANSWERED QUESTIONS. AT BEDSIDE. PATIENT IS DRESSED, PACKED AND TAKEN DOWN TO ICU VIA WC
--- NOTE | 2021-06-14 17:34 | NUR ---
Pt arrived from Medical floor fairly drowsy. PT moved to ICU bed and changed into gown. Hooked up to ICU monitoring. PT began trying to get out of bed and pulling at lines. Precedex drip started as orderd. Dr. Ortega notified of drip starting. Vitals obtained. Assessment completed. Pt is tachycardic at this time. Pt responsds to name and is able to recall . All other questions are answered with incomprehensible sounds. PT continues to pull at lines. Constant reorientation is given.
--- NOTE | 2021-06-14 18:50 | NUR ---
Received report from VARINDER Quinn. Patient is alert and restless at this time. He requires frequent reorientation and repositioning. He is attempting to get out of bed. Mits in place at this time for protection of lines.
--- NOTE | 2021-06-14 19:12 | NUR ---
Spoke to Dr. Ortega about patient being maxed on precedex drip and still trying to pull at lines, climb out of bed, and trying to push at staff. Dr. Ortega recommended intubation and to contact the hospitalist. JOSE Ramírez notified and agrees with intubation due to report she had received prior from Dr. Kumar. Desiree stated to go ahead and call everyone and she would put in orders for intubation and central line. Report given to VARINDER Conte. Care relinquished at this time.
--- NOTE | 2021-06-14 19:55 | NUR ---
Received in report from VARINDER Quinn, patient's POC to intubate for patient and staff safety due to behaviors. This RN continued to notify house and anesthesia. Spoke with patient's son and DPOA, Rishi; updated on POC and received consent for intubation and central line insertion if necessary. Anesthesia provider, Nas Blanco, arrives at bedside at approximately 1945. At this time, patient is resting quietly in bed, receiving Precedex at max ordered dose of 0.7 mcg/kg/hr. Vitals within normal limits; patient not exhibiting restless or harmful behaviors towards self or staff. Anesthesia notifies Dr. Ortega, and together they decide intubation is not necessary at this time.
[2021-06-15] VITALS (877 sets, daily range): BP systolic 71–148; BP diastolic 49–109; PULSE 58–83; TEMP 97.3–97.6; O2SAT 67–100
[2021-06-15 07:18] LABS: BASO % 1.2 % (0.0-2.0); EOS # 0.1 K/mm3 (0.0-0.7); EOS % 3.2 % (0-4.0); GRAN # 2.2 K/mm3 (1.4-6.5); GRAN % 65.9 % (42.2-75.2); HEMOGLOBIN 11.1 g/dl (13.5-18.0); LYMPH # 0.6 K/mm3 (1.2-3.4); LYMPH % 16.8 % (20.0-51.0); MEAN CELL VOLUME 95 fl (80.0-100.0); MEAN CORPUSCULAR HEMOGLOBIN 31 pg (27.0-31.0); MEAN CORPUSCULAR HGB CONC 33 g/dl (33.0-37.0); MONO # 0.4 K/mm3 (0.1-0.6); MONO % 12.6 % (1.7-9.3); PLATELET COUNT 121 K/mm3 (130-400); RED BLOOD COUNT 3.57 M/mm3 (4.20-5.60); REDCELL DISTRIBUTION WIDTH-CV 12.2 % (11.5-14.5)
[2021-06-15 07:19] LABS: HEMATOCRIT 33.9 % (42.0-52.0)
[2021-06-15 07:35] LABS: ALBUMIN 2.9 gm/dL (3.4-4.8); BILIRUBIN,TOTAL 0.6 mg/dL (0.2-1.2); CREATININE, serum 0.99 mg/dL (0.72-1.25); PHOSPHOROUS 4.1 mg/dL (2.3-4.7); POTASSIUM 4.2 mmol/L (3.5-4.5)
[2021-06-15] MEDS ORDERED: TYLENOL 325MG325 MG PO (08:16)
[2021-06-15] MEDS ORDERED: ASPI325T6 PO (08:19)
[2021-06-15] MEDS ORDERED: KEPPRA 500MG500 MG PO (08:20)
[2021-06-15] MEDS ORDERED: PRINIVIL10 MG PO (08:20)
[2021-06-15] MEDS ORDERED: MULTIPLE VITAMI1 TA1 PO (08:20)
--- NOTE | 2021-06-15 09:22 | NUR ---
Spoke with patients ROXIE Elias and updated him on patients condition. Son would like to talk with
--- NOTE | 2021-06-15 15:49 | NUR ---
Pt has been agitated this afternoon. Precedex titrated appropriately. PT is currently laying in bed with alarms on. Pt is constantly tring to pull out IV. Pt does well with reorientation however this only lasts for a few seconds.
--- NOTE | 2021-06-15 18:18 | NUR ---
PT IS BECOMING MORE IMPULSIVE and constantly trying to jump out of bed. Precedex is at highest dose allowed per order. ciwa =9 PT given 2mg of ATivan per orders. Next dose due in 1.5 hours. Nurse is bed side trying to calm patient.
--- NOTE | 2021-06-15 19:29 | NUR ---
Pt report given to VARINDER Santiago.
--- NOTE | 2021-06-15 21:30 | NUR ---
PT RESTLESS AND AGITATED. REPEATEDLY SAYING "I HAVE TO PEE" AND ATTEMPTING TO GET OUT OF BED. JENELLE RN NOTIFIED NANCIE GARCIA. ORDER OBTAINED FOR FOURNIER. FOURNIER ATTEMPTED AND CLARK RED BLOOD NOTED IN CATHETER. BALLOON NOT INFLATED. NOTIFIED NANCIE GARCIA. FOURNIER REMOVED AND PT BLADDER SCANNED. >450 ML IN BLADDER. NANCIE GARCIA NOTIFIED. ORDER TO PLACE FOURNIER AND MANUALLY IRRIGATE PRN. 18F FOURNIER PLACED. GROSS HEMATURIA NOTED. CATHETER IRRIGATED. LARGE CLOT REMOVED. PT RESTING COMFORTABLY WITH EYES CLOSED.
--- NOTE | 2021-06-15 23:24 | NUR ---
REPORT RECEIVED FROM PRECIOUS REEDER. PT ATTEMPTING TO GET OUT OF BED. PRECEDEX GTT AND LR RUNNING ORDERED. ATTEMPTED TO REORIENT PT. VSS. BED ALARM ON.
[2021-06-16] VITALS (676 sets, daily range): BP systolic 127–178; BP diastolic 82–113; PULSE 61–93; TEMP 97.1–98; O2SAT 53–100
--- NOTE | 2021-06-16 05:27 | NUR ---
PT HAD FEW PERIODS OF REST OVERNIGHT. PT HAS HAD ELEVATED CIWA >9 AND ATIVAN GIVEN DOCUMENTED IN OCT. PT ABLE TO REST FOR BREIF PERIODS OF TIME AFTER ATIVAN ADMINISTRATION THEN BECOMES RESTLESS. PRN HALDOL GIVEN X1 FOR AGITATION. FOURNIER PATENT AND DRAINING WITH CLEAR PEACH URINE. MANUALLY IRRIGATED X4. VSS. SO S/S OF SOA, PT ON RA. BED ALARM ON.
[2021-06-16 06:26] LABS: BASO # 0.1 K/mm3 (0.0-0.2); BASO % 1.1 % (0.0-2.0); EOS # 0.1 K/mm3 (0.0-0.7); EOS % 2.1 % (0-4.0); GRAN # 3.6 K/mm3 (1.4-6.5); GRAN % 75.4 % (42.2-75.2); HEMOGLOBIN 11.5 g/dl (13.5-18.0); LYMPH # 0.5 K/mm3 (1.2-3.4); MEAN CELL VOLUME 93 fl (80.0-100.0); MEAN CORPUSCULAR HEMOGLOBIN 31 pg (27.0-31.0); MEAN CORPUSCULAR HGB CONC 34 g/dl (33.0-37.0); MEAN PLATELET VOLUME 8.8 fl (7.4-10.4); MONO # 0.5 K/mm3 (0.1-0.6); MONO % 11.2 % (1.7-9.3); PLATELET COUNT 133 K/mm3 (130-400); RED BLOOD COUNT 3.67 M/mm3 (4.20-5.60); REDCELL DISTRIBUTION WIDTH-CV 11.9 % (11.5-14.5)
--- NOTE | 2021-06-16 06:28 | NUR ---
CIWA AT 0600 5. PT PREVIOUSLY RECEIVED SCHEDULED VALIUM IV AND SLEEPING. PRN ATIVAN NOT GIVEN AT THIS TIME.
[2021-06-16 06:44] LABS: ALBUMIN 2.7 gm/dL (3.4-4.8); BILIRUBIN,TOTAL 0.7 mg/dL (0.2-1.2); CALCIUM 8.8 mg/dL (8.4-10.2); CREATININE, serum 0.86 mg/dL (0.72-1.25); MAGNESIUM 1.8 mg/dL (1.6-2.6); PHOSPHOROUS 2.5 mg/dL (2.3-4.7); TOTAL PROTEIN 5.8 gm/dL (6.2-8.1)
--- NOTE | 2021-06-16 07:00 | NUR ---
RECEIVED REPORT FROM VARINDER HUANG. PT RESTING BUT ATTEMPTS TO GET OOB DURING REPORT BUT SETTLES BACK BY SELF. VSS. MITTS ON BILATERALLY. FC PATENT AND DRAINING TO GRAVITY. CALL LIGHT WITHIN REACH. BA IN PLACE.
--- NOTE | 2021-06-16 09:00 | NUR ---
SPOKE TO PT'S SON ABOTU PT'S NEURO STATUS AND PICC LINE PLACEMENT FOR TPN. PT'S SON GONSALO WOULD LIKE IF PROVIDER COULD GIVE HIM A CALL TODAY TO TALK ABOUT PT'S STATUS AND POC.
[2021-06-16 10:44] LABS: CHOLESTEROL 150 mg/dL (0-199); TRIGLYCERIDE 68 mg/dL (0-149)
--- NOTE | 2021-06-16 13:29 | NUR ---
Carlos Valladares, APS worker, notified SW that he has been assigned to the patient. He asks that we keep him updated on the patient's status. .
--- NOTE | 2021-06-16 15:24 | NUR ---
Chartered Wealth Manager contacted patient's son, Rishi Flores" to introduce self and check in. Robert advised he is looking forward to a call from the physician today with a clinical update. MARITO discussed potential discharge needs, possibly including SNF placement. Robert advised he would be agreeable to this, but would like SW to look for placement in [place] if possible as that is where they have a lot of family. Robert understands that if patient becomes more alert and oriented and does not agree to this plan, he cannot be forced to go. Robert will follow up with MARITO on area of [place] family is from. SW will look at sending referrals once Robert has a more narrowed area of [place] and when patient is more stable. MARITO attempted to contact patient's daughter, Rupal. Robert advised they are not on speaking terms but he will also try to contact her. Robert wants Rupal to be involved if she choses to be.
--- NOTE | 2021-06-16 20:00 | NUR ---
Assessment complete and charted. Patient very restless in bed. Ativan given per CWAL. Patient unable to follow commands. Does state he is in hospital. Bed bath given. Bed alarm in place.
[2021-06-17] VITALS (659 sets, daily range): BP systolic 91–156; BP diastolic 64–106; PULSE 52–70; TEMP 97–98; O2SAT 60–100
--- NOTE | 2021-06-17 05:49 | NUR ---
Patient very restless throughout night. Was given ativan and valium per orders. Patient asleep as of 0430 and remains mostly sleeping now. Bed alarm in place.
--- NOTE | 2021-06-17 07:00 | NUR ---
PT RESTING IN BED. PT HAS LR, TPN, AND PRECEDEX RUNNING. PT'S VSS. BEDALARM RUNNING. WILL CONTINUE TO MONTIOR.
[2021-06-17 07:11] LABS: BASO # 0.1 K/mm3 (0.0-0.2); EOS # 0.2 K/mm3 (0.0-0.7); EOS % 2.9 % (0-4.0); GRAN # 3.8 K/mm3 (1.4-6.5); GRAN % 74.6 % (42.2-75.2); HEMOGLOBIN 11.6 g/dl (13.5-18.0); LYMPH # 0.4 K/mm3 (1.2-3.4); LYMPH % 8.6 % (20.0-51.0); MEAN CELL VOLUME 92 fl (80.0-100.0); MEAN CORPUSCULAR HEMOGLOBIN 31 pg (27.0-31.0); MEAN CORPUSCULAR HGB CONC 34 g/dl (33.0-37.0); MEAN PLATELET VOLUME 9.2 fl (7.4-10.4); MONO # 0.7 K/mm3 (0.1-0.6); MONO % 12.7 % (1.7-9.3); PLATELET COUNT 149 K/mm3 (130-400); RED BLOOD COUNT 3.69 M/mm3 (4.20-5.60); REDCELL DISTRIBUTION WIDTH-CV 11.9 % (11.5-14.5)
--- NOTE | 2021-06-17 07:15 | NUR ---
Report given to Andie REEDER
[2021-06-17 07:34] LABS: ALBUMIN 2.6 gm/dL (3.4-4.8); BILIRUBIN,TOTAL 0.4 mg/dL (0.2-1.2); CALCIUM 8.7 mg/dL (8.4-10.2); CREATININE, serum 0.69 mg/dL (0.72-1.25); PHOSPHOROUS 2.6 mg/dL (2.3-4.7); POTASSIUM 3.7 mmol/L (3.5-4.5); TOTAL PROTEIN 5.7 gm/dL (6.2-8.1)
--- NOTE | 2021-06-17 16:06 | NUR ---
Blasting Contract Miner received a follow up call from patient's son, Robert who advised their family lives around [place]), [place], [place] and [facility], with [place] likely being the preference. SW faxed a facesheet to [place] [facility], [facility], [facility], and [facility] all in [place] SW left a message for [facility] and [facility]. SW to fax more clinicals once patient is more stable medically.
--- NOTE | 2021-06-17 20:08 | NUR ---
PATIENT MOVES ABOUT FREELY IN BED, AWAKENS UPON EXTERNAL STIMULI SUCH VOICE, AND STATES "I'M TIRED".
[2021-06-18] VITALS (775 sets, daily range): BP systolic 120–167; BP diastolic 62–100; PULSE 58–83; TEMP 97.3–98.5; O2SAT 50–100
[2021-06-18 04:59] LABS: BASO % 0.7 % (0.0-2.0); EOS # 0.1 K/mm3 (0.0-0.7); EOS % 2.7 % (0-4.0); GRAN # 3.2 K/mm3 (1.4-6.5); GRAN % 71.5 % (42.2-75.2); HEMOGLOBIN 10.9 g/dl (13.5-18.0); LYMPH # 0.5 K/mm3 (1.2-3.4); MEAN CELL VOLUME 91 fl (80.0-100.0); MEAN CORPUSCULAR HEMOGLOBIN 31 pg (27.0-31.0); MEAN CORPUSCULAR HGB CONC 34 g/dl (33.0-37.0); MONO # 0.6 K/mm3 (0.1-0.6); MONO % 13.9 % (1.7-9.3); PLATELET COUNT 150 K/mm3 (130-400); RED BLOOD COUNT 3.48 M/mm3 (4.20-5.60); REDCELL DISTRIBUTION WIDTH-CV 12.2 % (11.5-14.5)
[2021-06-18 05:00] LABS: HEMATOCRIT 31.8 % (42.0-52.0)
[2021-06-18 05:20] LABS: CALCIUM 8.7 mg/dL (8.4-10.2); CREATININE, serum 0.83 mg/dL (0.72-1.25); MAGNESIUM 2.3 mg/dL (1.6-2.6); PHOSPHOROUS 4.4 mg/dL (2.3-4.7)
--- NOTE | 2021-06-18 05:55 | NUR ---
PATIENT IS ARGUMENTIVE THIS AM, WANTS TO GET OUT OF BED, ALERT, WITH SOME CONFUSION
--- NOTE | 2021-06-18 07:20 | NUR ---
Report received from VARINDER Mart. Patient appears to be resting at this time.
--- NOTE | 2021-06-18 08:58 | NUR ---
Patient has attempted to climb out of bed several times this morning. He requires frequent redirection and reorientation. He is able to answer some questions appropriately but then answers other questions with inappropriate responses. He is given ativan prn for withdrawal symptoms. Seroquel also started by Dr. Ortega this morning. Patient was given meds crushed and in applesauce. After some coaching on swallowing, he swallowed the medication.
--- NOTE | 2021-06-18 09:02 | NUR ---
Patient is reminded that he is in the hospital and he is withdrawing from alcohol. He asks this RN if we are going to cut his leg off. I respond with "no, we are going to help you through the withdrawal symptoms."
--- NOTE | 2021-06-18 14:00 | NUR ---
PATIENT RESTING MORE COMFORTABLY ON INCREASED DOSE OF PRECEDEX. HE WAKES TO STIMULATION BUT THEN GOES BACK INTO RESTFUL STATE. VS REMAIN STABLE AND BED ALARM IS ACTIVATED. MITTS ON TO PREVENT HIM FROM PULLING AT LINES AND TUBES.
--- NOTE | 2021-06-18 15:57 | NUR ---
Reject Opener contacted Alli at [facility] to give referral. Alli to review clinicals and follow up with SW on if patient would qualify.
--- NOTE | 2021-06-18 19:24 | NUR ---
Report given to VARINDER Mart
--- NOTE | 2021-06-18 19:58 | NUR ---
THIS YOUNG MAN GET TO SIDE OF BED GETS CONFUSED AND LAYS BACK IN BED WITH THE HELP FROM STAFF/ AT TIMES WILL COMPLAIN OF BACK HURTING, AND THEN MUMBLES/ STATES ALOT OF YA YA
--- NOTE | 2021-06-18 21:33 | NUR ---
FOUND PATIENT SLEEP WITH APNEIC BREATHING PATIENT AWAKENS EASILY DECREASING MEDS
[2021-06-19] VITALS (177 sets, daily range): BP systolic 136–181; BP diastolic 86–110; PULSE 71–104; TEMP 97.3–98.6; O2SAT 79–100
[2021-06-19 04:39] LABS: CALCIUM 9.2 mg/dL (8.4-10.2); CREATININE, serum 1.91 mg/dL (0.72-1.25); MAGNESIUM 2.4 mg/dL (1.6-2.6); PHOSPHOROUS 4.7 mg/dL (2.3-4.7); POTASSIUM 4.2 mmol/L (3.5-4.5)
--- NOTE | 2021-06-19 13:25 | NUR ---
Portable Irrigation Operator spoke with Alli at [facility] who advised patient will not qualify. Patient is currently still precedex drip and having confusion at this time.
--- NOTE | 2021-06-19 19:10 | NUR ---
MR. MARIANNA LANGEMAHI THE DAY HAS BEEN TRYING TO GET OUT OF THE BED. BED ALARM IS ON. PATIENT WILL CONSTANTLY FUMBLE WITH HIS MITS, INCLUDING TRYING TO BIT THEM TO PULL THEM OFF. CONSTANT RE ORIENTATION WAS UNSUCCESSFUL. PATIENT WILL NOT TAKE PO MEDS.
[2021-06-20] VITALS (711 sets, daily range): BP systolic 134–165; BP diastolic 85–117; PULSE 75–130; TEMP 97.3–99; O2SAT 83–100
[2021-06-20 05:42] LABS: CALCIUM 9.1 mg/dL (8.4-10.2); CREATININE, serum 4.51 mg/dL (0.72-1.25); MAGNESIUM 2.5 mg/dL (1.6-2.6); PHOSPHOROUS 3.9 mg/dL (2.3-4.7); POTASSIUM 4.3 mmol/L (3.5-4.5)
[2021-06-21] VITALS (700 sets, daily range): BP systolic 123–194; BP diastolic 79–118; PULSE 63–100; TEMP 97.7–98.7; O2SAT 84–100
--- NOTE | 2021-06-21 06:42 | NUR ---
UPON ARRIVAL PT RATING CHEST PAIN PRESSURE 7/10. TITRATION OF NITRO DRIP, RATES CHEST PAIN AT 3/10. NITRO CURRENTLY AT 50 MCG/MIN. HEPARIN AT 1250 UNITS/HR. AT TIME OF NOTE PT STATES HE IS ABSENT OF ANY CHEST PAIN OR ABD PAIN. BP LESS THAN 160/90'S. ALL OTHER VITALS STABLE. ED REPORTS GOOD URINE OUTPUT FOR ICU PT HAD 550 ML OUT. COULD NOT COMPLETE MED REC DUE TO FELY BEING A POOR HISTORIAN AND PHARMACY CLOSED. NO OTHER COMPLAINTS STATED, SEE EMAR/MEDICAL RECORD FOR OTHER DETAILS.
--- NOTE | 2021-06-21 07:00 | NUR ---
PT RESTING IN BED. PT ON TPN AND PRECEDEX. VSS. BEDALARM ACTIVE. WILL CONTINUE TO MONTIOR.
[2021-06-21 07:03] LABS: CALCIUM 8.7 mg/dL (8.4-10.2); CREATININE, serum 6.51 mg/dL (0.72-1.25); MAGNESIUM 2.3 mg/dL (1.6-2.6); PHOSPHOROUS 4.7 mg/dL (2.3-4.7); POTASSIUM 4.8 mmol/L (3.5-4.5)
--- NOTE | 2021-06-21 18:58 | NUR ---
SPOKE WITH SINTIA TRISTAN REGARDING HYPERTENTION. WILL PLACE ORDERS.
[2021-06-22] VITALS (659 sets, daily range): BP systolic 84–220; BP diastolic 54–142; PULSE 61–120; TEMP 97.8–99; O2SAT 81–100
[2021-06-22 03:34] LABS: ARTERIAL BLD GAS TCO2 CT 18.3; ARTERIAL BLOOD GAS HCO3 17.4 meq/L (22-26); ARTERIAL BLOOD GAS PCO2 28.4 mmHg (35-45); ARTERIAL BLOOD GAS PO2 63.4 mmHg (80-100); ARTERIAL BLOOD GAS pH 7.41 (7.35-7.45)
[2021-06-22 03:37] LABS: MEAN CELL VOLUME 93 fl (80.0-100.0); MEAN CORPUSCULAR HEMOGLOBIN 31 pg (27.0-31.0); MEAN CORPUSCULAR HGB CONC 33 g/dl (33.0-37.0); MEAN PLATELET VOLUME 8.9 fl (7.4-10.4); PLATELET COUNT 158 K/mm3 (130-400); RED BLOOD COUNT 3.56 M/mm3 (4.20-5.60); REDCELL DISTRIBUTION WIDTH-CV 12.3 % (11.5-14.5)
[2021-06-22 03:40] LABS: HEMATOCRIT 33.1 % (42.0-52.0)
[2021-06-22 03:49] LABS: ALBUMIN 2.4 gm/dL (3.4-4.8); BILIRUBIN,TOTAL 0.7 mg/dL (0.2-1.2); CALCIUM 8.9 mg/dL (8.4-10.2); CREATININE, serum 7.78 mg/dL (0.72-1.25); TOTAL PROTEIN 6.1 gm/dL (6.2-8.1)
--- NOTE | 2021-06-22 04:17 | NUR ---
PATIENT INTUBATED AROUND 0400. NO BREATHING TRIAL AT THIS TIME
[2021-06-22 04:51] LABS: ARTERIAL BLD GAS TCO2 CT 18.7; ARTERIAL BLOOD GAS BASE EXCESS -5.2 (-2-2); ARTERIAL BLOOD GAS HCO3 17.9 meq/L (22-26); ARTERIAL BLOOD GAS PCO2 27.9 mmHg (35-45); ARTERIAL BLOOD GAS PO2 73.6 mmHg (80-100); ARTERIAL BLOOD GAS pH 7.42 (7.35-7.45)
--- NOTE | 2021-06-22 06:00 | NUR ---
PT SHOWN WORSENING SIGNS OF RESPIRATORY FUNCTION AROUND 0230. PT BREATHING WAS LABORED, COARSE, TACHYPNIC, COOL AND CLAMMY SKIN, O2 SATS 88-90 ON 2 L NC. SINTIA AZALEA CALLED IMMEDIATELY SAID SHE WAS ON HER WAY, SHE ARRIVED SHORTLY. LABS, ABG, AND CXR OBTAINED. DECISION WAS MADE TO INTUBATE PATIENT. PT WAS SUCCESSFULLY INTUBATED AROUND 0300 BY ED PHYSICIAN. SINTIA REMAINED AT BEDSIDE, ALL ORDERS RECEIVED. SEE MAR/EMAR FOR OTHER DETAILS.
--- NOTE | 2021-06-22 07:00 | NUR ---
PT IS INTUBATED AND SEDATED. PT ON PROPOFOL, FENT, AND TPN. PT'S VSS. WILL CONTTINUE TO MONTIOR.
[2021-06-22 07:08] LABS: BASO % 0.5 % (0.0-2.0); EOS # 0.2 K/mm3 (0.0-0.7); EOS % 1.9 % (0-4.0); GRAN # 6.2 K/mm3 (1.4-6.5); GRAN % 78.5 % (42.2-75.2); HEMOGLOBIN 10.5 g/dl (13.5-18.0); LYMPH # 0.6 K/mm3 (1.2-3.4); LYMPH % 8.1 % (20.0-51.0); MEAN CELL VOLUME 97 fl (80.0-100.0); MEAN CORPUSCULAR HEMOGLOBIN 31 pg (27.0-31.0); MEAN CORPUSCULAR HGB CONC 32 g/dl (33.0-37.0); MONO # 0.8 K/mm3 (0.1-0.6); MONO % 10.6 % (1.7-9.3); PLATELET COUNT 148 K/mm3 (130-400); RED BLOOD COUNT 3.37 M/mm3 (4.20-5.60); REDCELL DISTRIBUTION WIDTH-CV 12.6 % (11.5-14.5)
[2021-06-22 07:09] LABS: HEMATOCRIT 32.6 % (42.0-52.0)
[2021-06-22 07:21] LABS: 12 HR URINE TOTAL VOLUME 0.06 L
[2021-06-22 07:30] LABS: CALCIUM 8.8 mg/dL (8.4-10.2); CREATININE, serum 7.89 mg/dL (0.72-1.25); POTASSIUM 4.6 mmol/L (3.5-4.5)
--- NOTE | 2021-06-22 09:56 | NUR ---
Notified that Pt's son request update to help determine plan of care.
--- NOTE | 2021-06-22 12:41 | NUR ---
SPOKE [facility] PT'S SON MILES AND UPDATED. WILL GIVE SON'S NUMBER TO AND TO CALL [facility] UPDATE SO SON CAN DETERMINE PLAN OF CARE.
--- NOTE | 2021-06-22 17:00 | NUR ---
Pt opens eyes to touch. Pt moves all extremeties. Pt does not follow commands or answer questions, same for the past week.
[2021-06-23] VITALS (574 sets, daily range): BP systolic 112–161; BP diastolic 75–100; PULSE 80–104; TEMP 98.5–99.1; O2SAT 74–100
[2021-06-23 04:15] LABS: BASO # 0.1 K/mm3 (0.0-0.2); BASO % 0.9 % (0.0-2.0); EOS # 0.3 K/mm3 (0.0-0.7); EOS % 4.1 % (0-4.0); GRAN # 4.6 K/mm3 (1.4-6.5); GRAN % 72.1 % (42.2-75.2); LYMPH # 0.7 K/mm3 (1.2-3.4); LYMPH % 10.2 % (20.0-51.0); MEAN CELL VOLUME 93 fl (80.0-100.0); MEAN CORPUSCULAR HGB CONC 33 g/dl (33.0-37.0); MONO # 0.8 K/mm3 (0.1-0.6); MONO % 12.2 % (1.7-9.3); PLATELET COUNT 139 K/mm3 (130-400); RED BLOOD COUNT 3.17 M/mm3 (4.20-5.60); REDCELL DISTRIBUTION WIDTH-CV 13.1 % (11.5-14.5)
[2021-06-23 04:21] LABS: HEMATOCRIT 29.6 % (42.0-52.0); HEMOGLOBIN 9.8 g/dl (13.5-18.0); MEAN CORPUSCULAR HEMOGLOBIN 31 pg (27.0-31.0)
[2021-06-23 04:34] LABS: CALCIUM 8.4 mg/dL (8.4-10.2); CREATININE, serum 9.19 mg/dL (0.72-1.25); MAGNESIUM 2.1 mg/dL (1.6-2.6); PHOSPHOROUS 4.8 mg/dL (2.3-4.7); POTASSIUM 4.9 mmol/L (3.5-4.5)
[2021-06-23 05:09] LABS: ARTERIAL BLD GAS O2 SATURATION 96.4 % (92-100); ARTERIAL BLD GAS TCO2 CT 18.5; ARTERIAL BLOOD GAS BASE EXCESS -6.2 (-2-2); ARTERIAL BLOOD GAS HCO3 17.6 meq/L (22-26); ARTERIAL BLOOD GAS PCO2 29.6 mmHg (35-45); ARTERIAL BLOOD GAS PO2 83.6 mmHg (80-100); ARTERIAL BLOOD GAS pH 7.39 (7.35-7.45)
--- NOTE | 2021-06-23 11:00 | NUR ---
MD Lesly, MD Sammi and MD Rossy discussing pt - Physicans will call son/DPOA to discuss aim/direction
--- NOTE | 2021-06-23 15:41 | NUR ---
Patient was intubated over the weekend. SW collaborated with the team on rounds. Dr. Chapa and Dr. Grace to follow up with patient's son, Robert on plan of care. Family is considering palliative options as well. If patient continues with agressive care, he will need dialysis. SW to continue to follow.
[2021-06-24] VITALS (487 sets, daily range): BP systolic 123–169; BP diastolic 73–100; PULSE 77–97; TEMP 98.7–99.3; O2SAT 32–100
[2021-06-24 03:46] LABS: ARTERIAL BLD GAS O2 SATURATION 98.2 % (92-100); ARTERIAL BLD GAS TCO2 CT 15.7; ARTERIAL BLOOD GAS BASE EXCESS -7.2 (-2-2); ARTERIAL BLOOD GAS PCO2 24.9 mmHg (35-45)
[2021-06-24 03:47] LABS: ARTERIAL BLOOD GAS PO2 122.7 mmHg (80-100)
[2021-06-24 03:52] LABS: BASO # 0.1 K/mm3 (0.0-0.2); BASO % 0.7 % (0.0-2.0); EOS # 0.3 K/mm3 (0.0-0.7); EOS % 2.9 % (0-4.0); GRAN # 7.3 K/mm3 (1.4-6.5); GRAN % 81.5 % (42.2-75.2); LYMPH # 0.5 K/mm3 (1.2-3.4); LYMPH % 5.5 % (20.0-51.0); MEAN CELL VOLUME 92 fl (80.0-100.0); MEAN CORPUSCULAR HGB CONC 33 g/dl (33.0-37.0); MEAN PLATELET VOLUME 9.5 fl (7.4-10.4); MONO # 0.8 K/mm3 (0.1-0.6); MONO % 9.1 % (1.7-9.3); PLATELET COUNT 160 K/mm3 (130-400); RED BLOOD COUNT 3.16 M/mm3 (4.20-5.60); REDCELL DISTRIBUTION WIDTH-CV 13.4 % (11.5-14.5)
[2021-06-24 04:03] LABS: HEMOGLOBIN 9.7 g/dl (13.5-18.0); MEAN CORPUSCULAR HEMOGLOBIN 31 pg (27.0-31.0)
[2021-06-24 04:07] LABS: CALCIUM 8.7 mg/dL (8.4-10.2); CREATININE, serum 10.29 mg/dL (0.72-1.25); MAGNESIUM 2.1 mg/dL (1.6-2.6)
--- NOTE | 2021-06-24 08:55 | NUR ---
Pt's son at bedside. MD Rossy, Marcela,RN with nephrology and myself talking with Robert. Robert states he understands poor prognosis but still wishes to speak with all consulting physicians before making a decision on comfort care with compassionate extubation. Mansi Dukes RN notified of consult VARINDER Medrano states MD Lesly will be arriving to hospital about 0930 to talk with Robert.
--- NOTE | 2021-06-24 10:23 | NUR ---
PLANS TO EXTUBATE PATIENT ARE BEING DISCUSSED, FAMILY IN ROOM AT THIS TIME
--- NOTE | 2021-06-24 10:31 | NUR ---
Comfort basket at bedside and comfort quilt will be provided. Son at brother at bedside.
--- NOTE | 2021-06-24 14:26 | NUR ---
Palliative consult placed for patient. MARITO met with patient's son, Robert who is at bedside. Robert advised he feels it is his father's "time to go". Plan is for patient to be extubated and put on comfort care. MARITO collaborated with Mansi Palliative RN who gave referral to [facility]. MARITO contacted Tosha at [facility] to provide name of patient's primary care physician, Dr. Yousif. MARITO also contacted MARITO Pratt at [facility] to provide update. MARITO will continue to follow.
--- NOTE | 2021-06-24 15:01 | NUR ---
6 Total family members have been in and out to visit and say last goodbyes to patient. Anime Designer services declined by son Robert. Once family is ready, pt will be extubated and transfered to Hospice facility
--- NOTE | 2021-06-24 15:55 | NUR ---
patient's family in the room at this time
--- NOTE | 2021-06-24 15:56 | NUR ---
RT CALLED TO BEDSIDE AT THIS TIME, PATIENT WAS TERMINALLY EXTUBATED AT 1530
--- NOTE | 2021-06-24 16:09 | NUR ---
RT WAS CALLED BY RN TO EXTUBATE PATIENT. TIME OF EXTUBATION WAS 1543.
--- NOTE | 2021-06-24 16:29 | NUR ---
Pt extuabted with family standing-by in waiting room at 1545. With family present at 1623 Time of declared at 1623 by VARINDER Hart and Geri Chapa MD notified.
--- NOTE | 2021-06-24 17:10 | NUR ---
MTN notified of patient , patient not a candidate, referral # [id number]. Family still deciding what home to use.
--- NOTE | 2021-06-24 17:14 | NUR ---
PICC Line and Mendenhall Catheter removed
--- NOTE | 2021-06-24 17:27 | NUR ---
RT called to room, patient extubated to room air per doctor's order. RN at bedside as well, extubation called at 1534.
--- NOTE | 2021-06-24 18:36 | NUR ---
Family has chosen [facility] ([phone].) This RN spoke with the home and they will call back with an ETA.
== END 2021-06-24 20:00 | disposition expired | DRG 987 ==
LOC: SDCO 10:11 → SURG 15:35 → SDCO 06-12 08:56 → SURG 06-12 08:57 → ICU 06-14 17:15 → SURG 06-14 17:15 → ICU 06-24 20:00
PROVIDERS: Internal Medicine; Internal Medicine Pulmonary Disease; Nurse Practitioner Family; Physician Assistant; Student in an Organized Health Care Education/Training Program; ADMIT Urology
PROC: 0TBB8ZX Excision of Bladder, Via Natural or Artificial Opening Endoscopic, Diagnostic (ICD-10-PCS; 2021-06-11)
PROC: BT14YZZ Fluoroscopy of Kidneys, Ureters and Bladder using Other Contrast (ICD-10-PCS; 2021-06-11)
PROC: 0TBD8ZX Excision of Urethra, Via Natural or Artificial Opening Endoscopic, Diagnostic (ICD-10-PCS; 2021-06-11)
PROC: 02HV33Z Insertion of Infusion Device into Superior Vena Cava, Percutaneous Approach (ICD-10-PCS; principal; 2021-06-16)
PROC: 5A1945Z Respiratory Ventilation, 24-96 Consecutive Hours (ICD-10-PCS; 2021-06-22)
PROC: 0BH17EZ Insertion of Endotracheal Airway into Trachea, Via Natural or Artificial Opening (ICD-10-PCS; 2021-06-22)
DX: F10.231 Alcohol dependence with withdrawal delirium (principal); J96.01 Acute respiratory failure with hypoxia; N17.9 Acute kidney failure, unspecified; E44.0 Moderate protein-calorie malnutrition; J90 Pleural effusion, not elsewhere classified; C67.9 Malignant neoplasm of bladder, unspecified; F10.221 Alcohol dependence with intoxication delirium; G31.2 Degeneration of nervous system due to alcohol; Z20.822 Contact with and (suspected) exposure to COVID-19; Z66 Do not resuscitate; Z51.5 Encounter for palliative care; I12.9 Hypertensive chronic kidney disease with stage 1 through stage 4 chronic kidney disease, or unspecified chronic kidney disease; N18.30 Chronic kidney disease, stage 3 unspecified; J44.9 Chronic obstructive pulmonary disease, unspecified; D63.1 Anemia in chronic kidney disease; N40.0 Benign prostatic hyperplasia without lower urinary tract symptoms; R31.9 Hematuria, unspecified; E83.52 Hypercalcemia; G62.9 Polyneuropathy, unspecified; F03.90 Unspecified dementia, unspecified severity, without behavioral disturbance, psychotic disturbance, mood disturbance, and anxiety; F04 Amnestic disorder due to known physiological condition; G40.409 Other generalized epilepsy and epileptic syndromes, not intractable, without status epilepticus; H93.19 Tinnitus, unspecified ear; D69.6 Thrombocytopenia, unspecified; Z68.22 Body mass index [BMI] 22.0-22.9, adult; E78.5 Hyperlipidemia, unspecified; R53.81 Other malaise; Z98.1 Arthrodesis status; Z87.891 Personal history of nicotine dependence
CPT/HCPCS: OP; 99222; 99231-AI; 99232-AI; 99233-AI; 99239; A4217; A4314; C1751; J0330; J0360; J0610; J0690; J0692; J0696; J1100; J1170; J1630; J1644; J1650; J1815; J1953; J2060; J2175; J2270; J2405; J2704; J3010; J3360; J3370; J3411; J3475; J3480; J7030; J7040; J7050; J7120; J7131; Q9967